=== PATIENT | female | born 1990 | race Caucasian/White ===

== ENCOUNTER 2023-07-15 18:05 | Emergency (ER) | payer MEDICAID ==
[~2023-07-15] VITALS: Ht 162.6 cm; Wt 52.2 kg
[2023-07-15] MEDS ORDERED: KETOROLAC TROMETHAMINE INJ 30 MG/ML VIAL ONE (19:15)
[2023-07-15] MEDS: KETOROLAC TROMETHAMINE INJ 60 MG/2 ML VIAL IM ONE (19:25)
[2023-07-15 21:19] VITALS: BP 132/71; TEMP 98.2; O2SAT 98
== END 2023-07-15 21:20 | disposition home or self-care (01) ==
LOC: ER 18:05
DX: S92.214A Nondisplaced fracture of cuboid bone of right foot, initial encounter for closed fracture (principal); V29.99XA Rider (driver) (passenger) of other motorcycle injured in unspecified traffic accident, initial encounter; Y93.89 Activity, other specified; Y92.89 Other specified places as the place of occurrence of the external cause; Y99.8 Other external cause status
CPT/HCPCS: 99284; 29515; 96372; 73610; 73630; 73564; 73590; J1885